=== PATIENT | male | born 1965 | race Two or more races ===

== ENCOUNTER 2020-08-27 19:25 | Emergency (ER) | payer MEDICARE ==
--- NOTE | 2020-08-27 19:30 | EDM.PDOC ---
ED HPI GENERAL MEDICAL PROBLEM - General Chief Complaint: Lower Extremity Injury/Pain Stated Complaint: LT SHOULDER AND KNEE PAIN Time Seen by Provider: 08/27/20 19:27 Source of Information: Reports: Patient History Limitations: Reports: No Limitations - History of Present Illness INITIAL COMMENTS - FREE TEXT/NARRATIVE: 55-year-old male past medical history degenerative joint disease with chronic left shoulder and chronic left knee pain on oxycodone 15 mg every 4 hours by his physician in [place] presents for medication refill. Patient notes that he just drove into town today and does plan on establishing residence in [place]. He is hoping to have his medications refilled until he is able to follow-up with a specialist. He ran out of his medications on his drive and notes rebound pain from missing several doses. He denies any falls, injury, acute changes. 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 left knee Pain Score (Numeric/FACES): 10 - Related Data Allergies Allergy/AdvReac Type Severity Reaction Status Date / Time No Known Allergies Allergy Verified 08/27/20 19:36 Home Meds: Home Meds oxyCODONE HCl [oxyCODONE] 15 mg PO Q4H PRN 08/27/20 [History] oxyCODONE HCl [oxyCODONE] 15 mg PO Q4H PRN #24 tablet 08/27/20 [Rx] oxyCODONE HCl/Acetaminophen [Percocet 10-325 mg Tablet] 1 each PO Q6HR PRN 08/27/20 [History] Review of Systems - Review of Systems Review Of Systems: Comprehensive ROS is negative, except as noted in HPI. ED EXAM, GENERAL - Physical Exam Exam: See Below Exam Limited By: No Limitations General Appearance: Alert, WD/WN, No Apparent Distress Ears: Hearing Grossly Normal Throat/Mouth: Normal Voice, No Airway Compromise Head: Atraumatic, Normocephalic Neck: Normal Inspection Respiratory/Chest: No Respiratory Distress, No Accessory Muscle Use Cardiovascular: Normal Peripheral Pulses Extremities: Normal Inspection Neurological: Alert, Normal Cognition, Normal Gait Psychiatric: Normal Affect, Normal Mood Skin Exam: Warm, Dry, Intact, Normal Color Course - Vital Signs Last Recorded V/S: Last Vital Signs Temp 97.4 F 08/27/20 19:35 Pulse 90 08/27/20 19:35 Resp 18 08/27/20 19:35 BP 165/91 H 08/27/20 19:35 Pulse Ox 97 08/27/20 19:35 - Orders/Labs/Meds Meds: Medications Discontinued Medications Generic Name Dose Route Start Last Admin Trade Name Charly PRN Reason Stop Dose Admin Oxycodone HCl 15 mg 08/27/20 19:56 Oxycodone 5 Mg/5 Ml Cup PO 08/27/20 19:57 ONETIME ONE Oxycodone HCl 15 mg 08/27/20 19:58 Oxycodone 5 Mg Tab PO 08/27/20 19:59 ONETIME ONE - Re-Assessments/Exams Free Text/Narrative Re-Assessment/Exam: 08/27/20 20:00 Patient with chronic DJD pain presents requesting pain medication refill. Declines ED workup as this is not a new issue. I explained to patient that we will treat his pain tonight and give him a 3-day course of his analgesia regimen but but he needs to follow-up with a primary care physician or orthopedist for long-term management of chronic pain. Given that he is new to [facility] I believe it is reasonable to provide him with a 3-day course while he is awaiting follow- up. I have also placed him on orthopedic follow-up list so that he can establish care with a specialist locally for long-term management. Departure - Departure Time of Disposition: 20:02 Disposition: Home, Self-Care 01 Condition: Good Clinical Impression: DJD (degenerative joint disease) Qualifiers: Osteoarthritis location: unspecified site Osteoarthritis type: unspecified Qualified Code(s): M19.90 - Unspecified osteoarthritis, unspecified site - Discharge Information Prescriptions: oxyCODONE HCl [oxyCODONE] 15 mg PO Q4H PRN #24 tablet PRN Reason: Pain Instructions: Medicine Refill at the Emergency Department Referrals: PCP,None [Primary Care Provider] - Forms: ED Department Discharge Additional Instructions: I have provided you with a 3-day course of your oxycodone medication. Please note that 3 days is the maximum that we are able to fill narcotics from the emergency department. You will need to establish care with an orthopedist or primary care physician (information provided below) for long-term management of your chronic pain. Please note that if you return to the emergency department for a narcotic medication refill it is not guaranteed that the physician or practitioner that is seeing you will honor this request. [facility] [address] [place] [address], [address] [place], [place] [id number] The following information is given to patients seen in the emergency department who are being discharged to home. This information is to outline your options for follow-up care. We provide all patients seen in our emergency department with a follow-up referral. The need for follow-up, as well as the timing and circumstances, are variable depending upon the specifics of your emergency department visit. If you don't have a primary care physician on staff, we will provide you with a referral. We always advise you to contact your personal physician following an emergency department visit to inform them of the circumstance of the visit and for follow-up with them and/or the need for any referrals to a consulting specialist. The emergency department will also refer you to a specialist when appropriate. This referral assures that you have the opportunity for follow-up care with a specialist. All of these measure are taken in an effort to provide you with optimal care, which includes your follow-up. Under all circumstances we always encourage you to contact your private physician who remains a resource for coordinating your care. When calling for follow-up care, please make the office aware that this follow-up is from your recent emergency room visit. If for any reason you are refused follow-up, please contact the [facility] Emergency Department at and asked to speak to the emergency department charge nurse. Please follow up with your primary care physician. If you do not have a primary care physician, see below: [facility] [address] [place] [id number] [facility] [address] [place] [address] [facility] [address] [place] [id number] Sepsis Event Note (ED) - Focused Exam Vital Signs: Vital Signs Temp Pulse Resp BP Pulse Ox 08/27/20 19:35 97.4 F 90 18 165/91 H 97
[2020-08-27] MEDS ORDERED: oxyCODONE 5 MG/5 ML Cup PO ONE (19:56)
[2020-08-27] MEDS ORDERED: oxyCODONE 5 MG Tab PO ONE (19:58)
== END 2020-08-27 20:12 | disposition home or self-care (01) ==
LOC: MW.ED 19:25
DX: M19.012 Primary osteoarthritis, left shoulder (principal); M17.12 Unilateral primary osteoarthritis, left knee
CPT/HCPCS: 99283; A9270

== ENCOUNTER 2020-08-29 11:09 | Emergency (ER) | payer MEDICARE ==
--- NOTE | 2020-08-29 11:21 | EDM.PDOC ---
ED HPI GENERAL MEDICAL PROBLEM - General Chief Complaint: General Stated Complaint: BLOWN KNEE AND SHOULDER PAIN Time Seen by Provider: 08/29/20 11:12 Source of Information: Reports: Patient History Limitations: Reports: No Limitations - History of Present Illness INITIAL COMMENTS - FREE TEXT/NARRATIVE: HISTORY AND PHYSICAL: History of present illness: Patient is a 61-year-old male who presents to the emergency room requesting medication refill. Patient has a longstanding history of degenerative joint disease with chronic left shoulder and chronic left knee pain and typically takes oxycodone 15 mg every 4 hours as needed. Patient recently moved from [place] whom had been his pain management provider. He states he ran out of his medication on the way to [place] and had been seen in our emergency room on 08/27/2020. During this ER visit he was given a 3-day refill with the intention he was get a follow-up with the primary care provider. He denies any injury, trauma or falls. No acute changes in his chronic pain symptoms. He offers no systemic complaints. Review of systems: As per history of present illness and below otherwise all systems reviewed and negative. Past medical history: As per history of present illness and as reviewed below otherwise noncontributory. Surgical history: As per history of present illness and as reviewed below otherwise noncontributory. Social history: See social history for further information Family history: As per history of present illness and as reviewed below otherwise noncontributory. Physical exam: General: Well developed and well nourished 55-year-old male. Alert and orientated x 3. Nontoxic in appearance and in no acute distress. Vital signs are stable and have been reviewed by me. Nursing notes were reviewed. HEENT: Atraumatic, normocephalic, pupils equal and reactive bilaterally, negative for conjunctival pallor or scleral icterus, mucous membranes moist, trachea midline. No drooling or trismus noted. No meningeal signs. No hot potato voice noted. Lungs: Clear to auscultation bilaterally. No wheezes, rales, or rhonchi. Chest nontender. Normal work of breathing, no accessory muscles used. Heart: S1S2, regular rate and rhythm without overt murmur, gallops, or rubs. No JVD. No peripheral edema Abdomen: Soft, nondistended, nontender. Skin: Intact, warm, dry. No lesions or rashes noted. Hematologic: No petechiae or purpra. Mucosa appropriate color and normal nail bed color and refill. Extremities: Atraumatic, moves all extremities per self without difficulty or deficits, negative for cords or calf pain. Neurovascular unremarkable. Neuro: Awake, alert, oriented. Cranial nerves II through XII unremarkable. Cerebellum unremarkable. Motor and sensory unremarkable throughout. Exam nonfocal. Psychiatric: Mood and affect are appropriate. Normal thought process. Answering questions appropriately. Notes: *This patient was seen and evaluated during the 2019 SARS-CoV-2 novel cor onavirus pandemic period. Community viral transmission is ongoing at time of this encounter and the emergency department is operating under pandemic response procedures. Patient is a 55-year-old male who presents to the emergency room with chronic DJD pain requesting a refill on has oxycodone. Patient was seen in our emergency room on 08/27/2020 and given a 3-day course of oxycodone and was joseph mmended to follow-up to establish care for long-term management. Patient received 24 tablets of oxycodone 15 mg on 08/27/2020. I noticed he also had gone to [place] the same day (08/27) and received a second prescription for Percocet . When asked about the 2 visits in the same day for Oxycodone he states that he "needs it and cannot function without it...you're not giving me enough". I do not feel comfortable refilling this Oxycodone and had this conversation with the patient and afloat cryptologic manager at bedside. He is disgruntled and unhappy with my decision. He was given a script fo #160 tabs of Oxycodone on 07/10/2020 by his PCP, but states he was "fired" from their facility/providers because he was taking too much medication often. I have given him an IM injection of Toradol and prescription for diclofenac. I have also had nursing staff set up a follow-up appointment for him to be seen for his chronic pain management and narcotic usage for tomorrow at [facility] at 0830am. Reassessment at the time of disposition demonstrates that the patient is in no acute distress. The patient is stable for discharge, counseling was provided and we discussed in great detail signs and symptoms that would prompt them to return to the Emergency Department. Medication, follow up and supportive care measures were reviewed and discussed. He has an appointment for follow up and has already seen a provider in [place], which I recommend he see if he feels he needs to be seen sooner. Diagnostics: None Therapeutics: Toradol IM, Atarax PO Prescription: Diclofenac, Atarax PO Impression: Encounter for medication refill Drug Seeking Behavior Plan: 1. You were evaluated today on an emergent basis. This is your second ER visit requesting narcotic pain medication refill. We do no typically refill narcotics through the Emergency Room. We have made you an appointment with a primary care provider to be seen at [facility] (across the street) to be seen by Dr. Hoover at 08:30am. Please arrive early to give them your insurance information/register. 2. You can alternate Tylenol as needed for pain and fever management. I have prescribed diclofenac you can take 1 tab twice daily with food as needed for pain management. Do not take any additional NSAIDs such as ibuprofen or Aleve. 3. If your symptoms should worsen, new symptoms develop or any of the signs and symptoms we discussed should arise please return to the emergency room or call 911 (if needed). Definitive disposition and diagnosis as appropriate pending reevaluation and review of above. Left Knee Pain Score (Numeric/FACES): 10 - Related Data Allergies Allergy/AdvReac Type Severity Reaction Status Date / Time No Known Allergies Allergy Verified 08/29/20 11:23 Home Meds: Home Meds oxyCODONE HCl [oxyCODONE] 15 mg PO Q4H PRN 08/27/20 [History] Diclofenac Sodium [Voltaren] 75 mg PO BIDMEALS PRN #30 tab.cr 08/29/20 [Rx] hydrOXYzine HCL [Atarax] 50 mg PO Q12HR #15 tab 08/29/20 [Rx] Past Medical History HEENT History: Reports: None Cardiovascular History: Reports: None Respiratory History: Reports: None Gastrointestinal History: Reports: None Genitourinary History: Reports: None Musculoskeletal History: Reports: Other (See Below) Other Musculoskeletal History: Degenerative Joint Disease Neurological History: Reports: None Psychiatric History: Reports: None Endocrine/Metabolic History: Reports: None Insulin Pump Model and Microwave Engineer: None Hematologic History: Reports: None Immunologic History: Reports: None Oncologic (Cancer) History: Reports: None Dermatologic History: Reports: None - Infectious Disease History Infectious Disease History: Reports: None - Past Surgical History Head Surgeries/Procedures: Reports: None Musculoskeletal Surgical History: Reports: Other (See Below) Other Musculoskeletal Surgeries/Procedures:: Knee Replacement ED ROS GENERAL - Review of Systems Review Of Systems: Comprehensive ROS is negative, except as noted in HPI. ED EXAM, GENERAL - Physical Exam Exam: See Below (See dictation) Course - Vital Signs Last Recorded V/S: Last Vital Signs Temp 98 F 08/29/20 11:23 Pulse 98 08/29/20 11:23 Resp 16 08/29/20 11:23 BP 145/98 H 08/29/20 11:23 Pulse Ox 100 08/29/20 11:23 - Orders/Labs/Meds Meds: Medications Discontinued Medications Generic Name Dose Route Start Last Admin Trade Name Freq PRN Reason Stop Dose Admin Hydroxyzine HCl 50 mg 08/29/20 12:00 Hydroxyzine Hcl 25 Mg Tab PO 08/29/20 12:01 ONETIME ONE Ketorolac Tromethamine 60 mg 08/29/20 11:31 08/29/20 11:54 Ketorolac 60 Mg/2 Ml Sdv IM 08/29/20 11:32 60 mg ONETIME ONE Administration Departure - Departure Time of Disposition: 12:13 Disposition: Home, Self-Care 01 Clinical Impression: Encounter for pain management, Drug-seeking behavior - Discharge Information Prescriptions: hydrOXYzine HCL [Atarax] 50 mg PO Q12HR #15 tab Diclofenac Sodium [Voltaren] 75 mg PO BIDMEALS PRN #30 tab.cr PRN Reason: Pain Instructions: Managing Pain Without Opioids Referrals: PCP,None [Primary Care Provider] - Forms: ED Department Discharge Additional Instructions: The following information is given to patients seen in the emergency department who are being discharged to home. This information is to outline your options for follow-up care. We provide all patients seen in our emergency department with a follow-up referral. The need for follow-up, as well as the timing and circumstances, are variable de pending upon the specifics of your emergency department visit. If you don't have a primary care physician on staff, we will provide you with a referral. We always advise you to contact your personal physician following an emergency department visit to inform them of the circumstance of the visit and for follow-up with them and/or the need for any referrals to a consulting specialist. The emergency department will also refer you to a specialist when appropriate. This referral assures that you have the opportunity for follow-up care with a specialist. All of these measure are taken in an effort to provide you with optimal care, which includes your follow-up. Under all circumstances we always encourage you to contact your private physician who remains a resource for coordinating your care. When calling for follow-up care, please make the office aware that this follow-up is from your recent emergency room visit. If for any reason you are refused follow-up, please contact the [facility] Emergency Department at and asked to speak to the emergency department charge nurse. [facility] [address] [place] [id number] [place] [address] Thank you for choosing the [facility] emergency department in [place] for your medical needs today. It was a pleasure caring for you. Today you were seen in the emergency department for narcotic refill. 1. You were evaluated today on an emergent basis. This is your second ER visit requesting narcotic pain medication refill. We do no typically refill narcotics through the Emergency Room. We have made you an appointment with a primary care provider to be seen at [facility] ([place] the [place]) to be seen by Dr. Hoover at 08:30am. Please arrive early to give them your insurance information/register. 2. You can alternate Tylenol as needed for pain and fever management. I have prescribed diclofenac you can take 1 tab twice daily with food as needed for [place] n management. Do not take any additional NSAIDs such as ibuprofen or Aleve. 3. If your symptoms should worsen, new symptoms develop or any of the signs and symptoms we discussed should arise please return to the emergency room or call 911 (if needed). Sepsis Event Note (ED) - Focused Exam Vital Signs: Vital Signs Temp Pulse Resp BP Pulse Ox 08/29/20 11:23 98 F 98 16 145/98 H 100
[2020-08-29] MEDS ORDERED: Ketorolac 60 MG/2 ML SDV IM ONE (11:31)
[2020-08-29] MEDS ORDERED: hydrOXYzine HCl 25 MG Tab PO ONE (12:00)
== END 2020-08-29 12:37 | disposition home or self-care (01) ==
LOC: MW.ED 11:09
DX: M25.512 Pain in left shoulder (principal); M25.562 Pain in left knee; Z76.0 Encounter for issue of repeat prescription; Z76.5 Malingerer [conscious simulation]
CPT/HCPCS: 96372; 99281; J1885; 99283

== ENCOUNTER 2020-10-03 08:20 | Day surgery (SDC) | payer MEDICARE ==
[~2020-10-03 08:20] MED LIST: Lactated Ringers 1,000 ML IV SCH; Lidocaine 2% 5 ML SDV ONE; Ondansetron 4 MG/2 ML SDV ONE; fentaNYL 100 MCG/2 ML SDV ONE
--- NOTE | 2020-10-03 08:31 | PCM.PREANE ---
Preanesthetic Assessment - Anesthesia/Transfusion/Family Hx Anesthesia History: Prior Anesthesia Without Reaction Transfusion History: No Prior Transfusion(s) - Review of Systems General: No Symptoms Pulmonary: No Symptoms Cardiovascular: No Symptoms Gastrointestinal: Difficulty Swallowing Neurological: No Symptoms Other: Reports: Neck Pain - Physical Assessment NPO Status Date: 10/03/20 NPO Status Time: 00:00 Height: 6 ft Weight: 200 lb ASA Class: 3 Mental Status: Alert & Oriented x3 Airway Class: Mallampati = 2 Dentition: Reports: Normal Dentition ROM/Head Extension: Full Lungs: Clear to Auscultation, Normal Respiratory Effort Cardiovascular: Regular Rate, Regular Rhythm - Allergies Allergies/Adverse Reactions: Allergies Allergy/AdvReac Type Severity Reaction Status Date / Time No Known Allergies Allergy Verified 09/30/20 15:12 - Acknowledgements Anesthesia Type Planned: General Anesthesia Pt an Appropriate Candidate for the Planned Anesthesia: Yes Alternatives and Risks of Anesthesia Discussed w Pt/Guardian: Yes Pt/Guardian Understands and Agrees with Anesthesia Plan: Yes PreAnesthesia Questionnaire HEENT History: Reports: Hard of Hearing, Other (See Below) Other HEENT History: uses reading glasses Cardiovascular History: Reports: Hypertension Respiratory History: Reports: None Gastrointestinal History: Reports: GERD, Other (See Below) Other Gastrointestinal History: dysphagia Genitourinary History: Reports: None Musculoskeletal History: Reports: Osteoarthritis, Other (See Below) Other Musculoskeletal History: Degenerative Joint Disease Neurological History: Reports: None Psychiatric History: Reports: Anxiety, Depression, Panic Attack Other Psychiatric History: takes Hydroxyzine for panic attacks with good results Endocrine/Metabolic History: Reports: None Hematologic History: Reports: None Immunologic History: Reports: None Oncologic (Cancer) History: Reports: None Dermatologic History: Reports: None - Infectious Disease History Infectious Disease History: Reports: None - Past Surgical History Head Surgeries/Procedures: Reports: None HEENT Surgical History: Reports: Tonsillectomy Cardiovascular Surgical History: Reports: None Respiratory Surgical History: Reports: None GI Surgical History: Reports: Hernia, Inguinal Male Surgical History: Reports: None Endocrine Surgical History: Reports: None Neurological Surgical History: Reports: None Musculoskeletal Surgical History: Reports: Knee Replacement, ORIF, Shoulder Surgery Other Musculoskeletal Surgeries/Procedures:: left Knee Replacement, bilateral RTCR, ORIF right ankle (no hardware) - SUBSTANCE USE Tobacco Use Status *Q: Current Every Day Tobacco User Tobacco Use Within Last Twelve Months: Vaping Recreational Drug Use History: No - HOME MEDS Home Medications: Home Meds oxyCODONE HCl [oxyCODONE] 15 mg PO ASDIRECTED 08/27/20 [History] Cyclobenzaprine [Flexeril] 10 mg PO TID PRN 09/30/20 [History] Losartan Potassium 50 mg PO QAM 09/30/20 [History] Multivitamin 1 tab PO DAILY 09/30/20 [History] Naloxone [Narcan] 0.4 mg SOMMER ONETIME PRN 09/30/20 [History] hydrOXYzine HCL [Atarax] 50 mg PO QID PRN 09/30/20 [History] - CURRENT (IN HOUSE) MEDS Current Meds: Current Medications Lactated Ringer's (Ringers, Lactated) 1,000 mls @ 125 mls/hr IV ASDIRECTED BERENICE Discontinued Medications Fentanyl (Fentanyl 100 Mcg/2 Ml Sdv) Confirm Administered Dose 100 mcg .ROUTE .STK-MED ONE Stop: 10/03/20 07:02 Lidocaine (Lidocaine 2% 5 Ml Sdv) Confirm Administered Dose 5 ml .ROUTE .STK-MED ONE Stop: 10/03/20 07:02 Ondansetron HCl (Ondansetron 4 Mg/2 Ml Sdv) Confirm Administered Dose 4 mg .ROUTE .STK-MED ONE Stop: 10/03/20 07:02
[2020-10-03] MEDS ORDERED: propofoL 100 ML ONE (08:54)
--- NOTE | 2020-10-03 11:38 | PCM.POSTAN ---
POST ANESTHESIA ASSESSMENT - MENTAL STATUS Mental Status: Alert - VITAL SIGNS Vital Signs: Last Vital Signs Temp 36.6 C 10/03/20 08:50 Pulse 88 10/03/20 11:36 Resp 15 10/03/20 11:36 BP 112/80 10/03/20 11:36 Pulse Ox 97 10/03/20 11:36 - RESPIRATORY Respiratory Status: Respiratory Rate WNL, Airway Patent, O2 Saturation Stable - CARDIOVASCULAR CV Status: Pulse Rate WNL - GASTROINTESTINAL GI Status: No Symptoms - POST OP HYDRATION Hydration Status: Adequate & Stable
--- NOTE | 2020-10-03 11:39 | PCM48HPAN ---
Post Anesthesia Note - EVALUATION WITHIN 48HRS OF ANESTHETIC Vital Signs in Normal Range: Yes Patient Participated in Evaluation: Yes Respiratory Function Stable: Yes Airway Patent: Yes Cardiovascular Function Stable: Yes Hydration Status Stable: Yes Pain Control Satisfactory: Yes Nausea and Vomiting Control Satisfactory: Yes Mental Status Recovered: Yes Vital Signs: Last Vital Signs Temp 36.6 C 10/03/20 08:50 Pulse 88 10/03/20 11:36 Resp 15 10/03/20 11:36 BP 112/80 10/03/20 11:36 Pulse Ox 97 10/03/20 11:36
--- NOTE | 2020-10-03 11:43 | PCM.OPNOTE ---
- General Post-Op/Procedure Note Date of Surgery/Procedure: 10/03/20 Operative Procedure(s): Esophagogastroduodenoscopy with gastric and esophageal biopsies and dilatation of esophageal stricture to [address] [place]. Colonoscopy. Pre Op Diagnosis: Dysphagia. Family history of colon cancer. Desire for colorectal cancer screening. Post-Op Diagnosis: Chronic gastritis. Hiatal hernia with moderate acute and chronic esophagitis. Esophageal stricture at 35 cm. Sigmoid diverticulosis. Anesthesia Technique: MAC (ASA II) Primary Surgeon: Jose Navarro Condition: Good Free Text/Narrative:: DICTATION [id number] CPT CODE [id number]
[2020-10-03] MEDS ORDERED: Lactated Ringers 1,000 ML IV SCH (11:45)
--- NOTE | 2020-10-03 16:04 | OR ---
SURGEON: Jose Navarro M.D. DATE OF PROCEDURE: 10/03/2020 OPERATION PERFORMED: Esophagogastroduodenoscopy with gastric and esophageal biopsies, and balloon dilatation of esophageal stricture to 54-Micronesian. PRIMARY SURGEON: Jose Navarro M.D. ANESTHESIA: MAC. ASA CLASSIFICATION: II. PREOPERATIVE DIAGNOSIS: Dysphagia. POSTOPERATIVE DIAGNOSES: 1. Chronic gastritis. 2. Large hiatal hernia. 3. Distal esophagitis. 4. Esophageal stricture at 35 cm. DESCRIPTION OF PROCEDURE: The patient was taken to the endoscopy room and positioned on the endoscopy table in the left lateral decubitus position. Time-out was called for appropriate identification of the patient and procedure. Monitored anesthesia care was provided. The bite block was placed between the patient's teeth. The gastroscope was inserted through the bite block into the oropharynx and advanced through the esophagus into the area of the stricture. I was able to get across the stricture at the beginning of the procedure, however, it was a bit tight. The gastroscope was then further advanced through the esophagus into the duodenum where examination was now carried out in a retrograde fashion. The duodenum showed no acute inflammatory changes or ulcerations. The stomach did show mild to moderate chronic gastritis. Antral biopsies were obtained to look for the presence of Helicobacter pylori. The gastroscope was then retroflexed to visualize the proximal stomach. The patient did have a rather large hiatal hernia. The scope was then straightened and slowly withdrawn. The GE junction did show moderate inflammatory changes and biopsies just above this area were obtained. Additionally, a stricture was identified at approximately 35 cm. I was able to balloon dilate this to 18 mm/54-Micronesian size balloon dilator. Two inflations were used at 18 mm to adequately dilate this. There was moderate amount of oozing. The scope was then slowly withdrawn. The vocal cords were not visualized. The oropharynx was aspirated, and the scope removed. The patient tolerated this portion of the procedure well. Following colonoscopy, he was taken to recovery room in stable condition. ANTONIO / DELMI /[id number]
--- NOTE | 2020-10-03 16:18 | OR ---
SURGEON: Jose Navarro M.D. DATE OF PROCEDURE: 10/03/2020 OPERATION PERFORMED: Colonoscopy. PRIMARY SURGEON: Jose Navarro M.D. ANESTHESIA: MAC. ASA CLASSIFICATION: II. PREOPERATIVE DIAGNOSES: 1. Desire for colorectal cancer screening. 2. Family history of colon cancer. POSTOPERATIVE DIAGNOSIS: Mild sigmoid diverticulosis. DESCRIPTION OF PROCEDURE: With the patient having completed upper GI endoscopy, he was maintained in the left lateral decubitus position. The colonoscope was inserted into the rectum and advanced with moderate difficulty to the cecum. The cecum was identified by internal landmarks and external pressure. The colonoscope was retroflexed in the cecum to visualize the ascending colon from below and then straightened and slowly withdrawn. The cecum, ascending colon, hepatic flexure, transverse colon, splenic flexure, descending colon, sigmoid colon, and rectum were very well visualized. No tumors or polyps were seen. There was no evidence of inflammatory bowel disease. A few scattered diverticula were noted in the sigmoid colon. No stricture, spasm, or bleeding was noted in the sigmoid colon. The colonoscope was withdrawn to the rectum and retroflexed to visualize the anal orifice from above. The patient did have some minor chronic hemorrhoidal changes. No acute bleeding was noted. No rectal polyps were encountered. The colonoscope was then straightened, the rectum aspirated, and the colonoscope removed. The patient tolerated the procedure well and was taken to recovery room in stable condition. ANTONIO AWAD /[id number]
== END 2020-10-03 12:01 | disposition home or self-care (01) ==
LOC: MW.SDS 08:20
PROVIDERS: ATTEND Surgery
DX: Z12.11 Encounter for screening for malignant neoplasm of colon (principal); K57.30 Diverticulosis of large intestine without perforation or abscess without bleeding; K44.9 Diaphragmatic hernia without obstruction or gangrene; K22.2 Esophageal obstruction; K21.00 Gastro-esophageal reflux disease with esophagitis, without bleeding; K64.9 Unspecified hemorrhoids; K29.50 Unspecified chronic gastritis without bleeding; F17.200 Nicotine dependence, unspecified, uncomplicated; Z01.812 Encounter for preprocedural laboratory examination; Z20.822 Contact with and (suspected) exposure to COVID-19; Z80.0 Family history of malignant neoplasm of digestive organs; Z98.890 Other specified postprocedural states; Z79.899 Other long term (current) drug therapy
CPT/HCPCS: 43239; 43249; G0105; J2405; J2704; J3010; J7120; U0002; 00813; 88305; 88342

== ENCOUNTER 2021-01-13 11:02 | Day surgery (SDC) | payer MEDICARE ==
[~2021-01-13 11:02] MED LIST changes: -Lidocaine 2% 5 ML SDV ONE; -Ondansetron 4 MG/2 ML SDV ONE; -fentaNYL 100 MCG/2 ML SDV ONE
--- NOTE | 2021-01-13 12:00 | PCM.PREANE ---
Preanesthetic Assessment - Procedure Proposed Procedure: EGD - Anesthesia/Transfusion/Family Hx Anesthesia History: Prior Anesthesia Without Reaction Family History of Anesthesia Reaction: No Transfusion History: No Prior Transfusion(s) - Review of Systems General: No Symptoms Pulmonary: No Symptoms (Vapes) Cardiovascular: No Symptoms (HTN) Gastrointestinal: Difficulty Swallowing (h/o espoh dilation, now needs again.) Neurological: No Symptoms Other: Reports: None - Physical Assessment NPO Status Date: 01/11/21 (Pt states "haven't really been able to swallow or eat food in days") NPO Status Time: 17:00 Vital Signs: Last Vital Signs Temp 96.8 F L 01/13/21 11:42 Pulse 99 01/13/21 11:42 Resp 14 01/13/21 11:42 BP 101/74 01/13/21 11:42 Pulse Ox 97 01/13/21 11:42 Height: 6 ft Weight: 95.254 kg ASA Class: 2 Mental Status: Alert & Oriented x3 Airway Class: Mallampati = 2 Dentition: Reports: Edentulous (Has just two bottom teeth.) Thyro-Mental Finger Breadths: 3 Mouth Opening Finger Breadths: 3 ROM/Head Extension: Full Lungs: Clear to Auscultation, Normal Respiratory Effort Cardiovascular: Regular Rate, Regular Rhythm - Allergies Allergies/Adverse Reactions: Allergies Allergy/AdvReac Type Severity Reaction Status Date / Time No Known Allergies Allergy Verified 01/12/21 11:21 - Acknowledgements Anesthesia Type Planned: General Anesthesia Pt an Appropriate Candidate for the Planned Anesthesia: Yes Alternatives and Risks of Anesthesia Discussed w Pt/Guardian: Yes Pt/Guardian Understands and Agrees with Anesthesia Plan: Yes PreAnesthesia Questionnaire HEENT History: Reports: Hard of Hearing, Other (See Below) Other HEENT History: uses reading glasses, poor dentition Cardiovascular History: Reports: Hypertension Respiratory History: Reports: None Gastrointestinal History: Reports: Other (See Below) Other Gastrointestinal History: dysphagia, esophageal stricture Genitourinary History: Reports: None Musculoskeletal History: Reports: Osteoarthritis, Other (See Below) Other Musculoskeletal History: Degenerative Joint Disease Neurological History: Reports: None Psychiatric History: Reports: Anxiety, Depression, Panic Attack Other Psychiatric History: takes Hydroxyzine for panic attacks with good results Endocrine/Metabolic History: Reports: None Hematologic History: Reports: None Immunologic History: Reports: None Oncologic (Cancer) History: Reports: None Dermatologic History: Reports: None - Infectious Disease History Infectious Disease History: Reports: None - Past Surgical History Head Surgeries/Procedures: Reports: None HEENT Surgical History: Reports: Tonsillectomy Cardiovascular Surgical History: Reports: None Respiratory Surgical History: Reports: None GI Surgical History: Reports: EGD, Hernia, Inguinal Male Surgical History: Reports: Vasectomy Endocrine Surgical History: Reports: None Neurological Surgical History: Reports: None Musculoskeletal Surgical History: Reports: Knee Replacement, ORIF, Shoulder Surgery Other Musculoskeletal Surgeries/Procedures:: left Knee Replacement, bilateral RTCR, ORIF right ankle (no hardware) - SUBSTANCE USE Tobacco Use Status *Q: Current Every Day Tobacco User Tobacco Use Within Last Twelve Months: Vaping Recreational Drug Use History: No - HOME MEDS Home Medications: Home Meds oxyCODONE HCl [oxyCODONE] 30 mg PO TID 08/27/20 [History] Cyclobenzaprine [Flexeril] 10 mg PO TID PRN 09/30/20 [History] Losartan Potassium 50 mg PO QAM 09/30/20 [History] Multivitamin 1 tab PO DAILY 09/30/20 [History] Naloxone [Narcan] 0.4 mg SOMMER ONETIME PRN 09/30/20 [History] hydrOXYzine HCL [Atarax] 50 mg PO QID PRN 09/30/20 [History] - CURRENT (IN HOUSE) MEDS Current Meds: Current Medications Lactated Ringer's (Ringers, Lactated) 1,000 mls @ 125 mls/hr IV ASDIRECTED [facility] Last Admin: 01/13/21 11:46 Dose: 125 mls/hr Documented by:
[2021-01-13] MEDS ORDERED: Propofol 200 MG/20 ML SDV ONE ×2 (12:20→12:53)
[2021-01-13] MEDS ORDERED: fentaNYL 100 MCG/2 ML SDV ONE (12:20)
--- NOTE | 2021-01-13 13:15 | PCM.POSTAN ---
POST ANESTHESIA ASSESSMENT - MENTAL STATUS Mental Status: Somnolent - VITAL SIGNS Vital Signs: Last Vital Signs Temp 99.1 F 01/13/21 13:09 Pulse 91 01/13/21 13:09 Resp 25 H 01/13/21 13:09 BP 111/69 01/13/21 13:09 Pulse Ox 97 01/13/21 13:09 - RESPIRATORY Respiratory Status: Respiratory Rate WNL, Airway Patent, O2 Saturation Stable, Supplemental Oxygen - CARDIOVASCULAR CV Status: Pulse Rate WNL, Blood Pressure Stable - GASTROINTESTINAL GI Status: No Symptoms - POST OP HYDRATION Hydration Status: Adequate & Stable
--- NOTE | 2021-01-13 13:28 | PCM48HPAN ---
Post Anesthesia Note - EVALUATION WITHIN 48HRS OF ANESTHETIC Vital Signs in Normal Range: Yes Patient Participated in Evaluation: Yes Respiratory Function Stable: Yes Airway Patent: Yes Cardiovascular Function Stable: Yes Hydration Status Stable: Yes Pain Control Satisfactory: Yes Nausea and Vomiting Control Satisfactory: Yes Mental Status Recovered: Yes Vital Signs: Last Vital Signs Temp 99.1 F 01/13/21 13:09 Pulse 91 01/13/21 13:20 Resp 17 01/13/21 13:20 BP 106/78 01/13/21 13:20 Pulse Ox 93 L 01/13/21 13:20
[2021-01-13] MEDS ORDERED: Lactated Ringers 1,000 ML IV SCH (13:30)
--- NOTE | 2021-01-13 13:32 | PCM.OPNOTE ---
- General Post-Op/Procedure Note Date of Surgery/Procedure: 01/13/21 Operative Procedure(s): Esophagogastroduodenoscopy with balloon dilatation of esophageal stricture at 28 cm to 54 [place]. Biopsies of esophageal stricture at 28 cm. Pre Op Diagnosis: Esophageal stricture with obstruction and dysphagia. Post-Op Diagnosis: Esophageal stricture at 28 cm. Anesthesia Technique: MAC (ASA II) Primary Surgeon: Jose Navarro Obstetrician And Gynaecologist: Celestine Decker Condition: Good Free Text/Narrative:: Intake & Output 01/13/21 01/13/21 01/13/21 03:59 11:59 19:59 Intake Total 1000 Balance 1000 DICTATION [id number] CPT CODE 27848
--- NOTE | 2021-01-13 20:44 | OR ---
SURGEON: Jose Navarro M.D. DATE OF PROCEDURE: 01/13/2021 OPERATIONS PERFORMED: Esophagogastroduodenoscopy with balloon dilatation of esophageal stricture at 28 cm and biopsy of esophagus at 28 cm. PRIMARY SURGEON: Jose Navarro M.D. LOAD OUT SUPERVISOR: Chemical Tank Worker: KATHERINE Nam student. ANESTHESIA: MAC. ASA CLASSIFICATION: II. PREOPERATIVE DIAGNOSIS: Recurrent obstruction of the esophagus secondary to stricture. POSTOPERATIVE DIAGNOSIS: Recurrent obstruction of the esophagus secondary to stricture. DESCRIPTION OF PROCEDURE: The patient was taken to the endoscopy room and positioned on the endoscopy table in the supine position. Time-out was called for appropriate identification of the patient and procedure. Monitored anesthesia care was provided. The bite block was placed between the patient's teeth. The gastroscope was inserted into the bite block and I was able to advance it to the esophageal stricture at 28 cm. I could not push the scope through this area, and therefore it was presumed to be less than 12 mm in diameter. It was therefore necessary to dilate the esophagus using the balloon dilators. I was able to dilate the esophagus stricture to 54-Wolof or 18 mm in size. Once that was accomplished, I could easily advance the gastroscope through that area into the stomach and duodenum and examine the stomach. I did not see any acute ulceration. No biopsies of the stomach were obtained. As the scope was withdrawn back to the esophageal stricture, I elected to further dilate that, again to 18-Wolof. Once that was accomplished, the small amount of food stuff that was present above this area was easily able to be pushed through the strictured area. Biopsies of the esophagus at 28 cm were obtained. The gastroscope was then slowly withdrawn with the esophagus being patent at the present time. The patient has already agreed to referral to a larger center for further evaluation and other treatment of his esophageal stricture. The patient tolerated this well and was taken to recovery room in stable condition. ANTONIO / DELMI /[id number]
== END 2021-01-13 13:51 | disposition home or self-care (01) ==
LOC: MW.SDS 11:02
PROVIDERS: ATTEND Surgery
DX: K22.2 Esophageal obstruction (principal); K22.10 Ulcer of esophagus without bleeding; F41.9 Anxiety disorder, unspecified; K21.9 Gastro-esophageal reflux disease without esophagitis; I10 Essential (primary) hypertension; K29.50 Unspecified chronic gastritis without bleeding; Z79.899 Other long term (current) drug therapy; Z98.890 Other specified postprocedural states; Z87.891 Personal history of nicotine dependence
CPT/HCPCS: 43239; 43249; 88305; C1726; J2704; J3010; J7120; 00731

== ENCOUNTER 2021-05-12 09:30 | Day surgery (SDC) | payer MEDICARE, OTHER ==
[2021-05-12] MEDS ORDERED: fentaNYL 100 MCG/2 ML SDV ONE ×2 (10:32→11:04)
[2021-05-12] MEDS ORDERED: Propofol 200 MG/20 ML SDV ONE ×2 (10:32→11:06)
[2021-05-12] MEDS ORDERED: Lactated Ringers 1,000 ML IV SCH (12:15)
== END 2021-05-12 12:08 | disposition home or self-care (01) ==
LOC: MW.SDS 09:30
PROVIDERS: ATTEND Surgery
DX: K22.2 Esophageal obstruction (principal); K29.50 Unspecified chronic gastritis without bleeding; K44.9 Diaphragmatic hernia without obstruction or gangrene; F41.9 Anxiety disorder, unspecified; K21.9 Gastro-esophageal reflux disease without esophagitis; I10 Essential (primary) hypertension; Z79.899 Other long term (current) drug therapy; Z98.890 Other specified postprocedural states; Z72.0 Tobacco use
CPT/HCPCS: 43239; 43249; 88305; C1726; J2370; J2704; J3010; J7120; 00731